=== PATIENT | male | born 1980 | race Caucasian/White ===

== ENCOUNTER 2018-12-31 15:08 | Emergency (ER) | payer MEDICAID ==
[~2018-12-31] VITALS: Ht 180.3 cm; Wt 109.8 kg
[2018-12-31 15:23] VITALS: BP 137/99
--- NOTE | 2018-12-31 15:26 | NUR ---
PT VSS, NOT IN DISTRESS, AMB TO LOBBY WITH
--- NOTE | 2018-12-31 15:45 | NUR ---
PATIENT AMBULATED TO ER BED 12.
--- NOTE | 2018-12-31 15:50 | NUR ---
BIB . C/O GENERALIZED WEAKNESS. ALCOHOL INTAKE X 15 DAYS, INTAKE OF 4-6 BEERS TODAY PER PT, NO FOOD INTAKE FOR 15 DAYS, ONLY ALCOHOL INTAKE. VOMITED X4 TODAY, NO NAUSEA, NO DIZZINESS, AFEBRILE. AAO X4. PATIENT POSITIONED FOR COMFORT; HOB ELEVATED; BEDRAILS UP X1; BED DOWN. ER MD MADE AWARE OF PT STATUS.
--- NOTE | 2018-12-31 16:45 | NUR ---
Patient being evaluated by physician at bedside.
[2018-12-31] MEDS ORDERED: NACL 0.9% 1,000 ML IV ONE (16:50)
[2018-12-31 17:06] LABS: BASOPHILS # (AUTO) 0.1 K/uL (0.00-0.22); BASOPHILS % (AUTO) 1.7 % (0.0-2.0); HEMATOCRIT 40.4 % (36-52); HEMOGLOBIN 14.2 g/dL (12.0-18.0); LYMPHOCYTES # (AUTO) 1.3 K/uL (2.0-11.5); LYMPHOCYTES % (AUTO) 25.4 % (20.5-51.1); MEAN CORPUSCULAR HEMOGLOBIN 31 pg (27-31); MEAN CORPUSCULAR HGB CONC 35 g/dL (33-37); MONOCYTES # (AUTO) 0.5 K/uL (0.8-1.0); MONOCYTES % (AUTO) 9.1 % (1.7-9.3); NEUTROPHILS # (AUTO) 3.2 K/uL (1.8-7.7); NEUTROPHILS % (AUTO) 63.8 % (42.2-75.2); PLATELET COUNT (AUTO) 90 K/uL (140-450); RED BLOOD CELL COUNT(AUTO) 4.54 MIL/uL (4.20-6.10); RED CELL DISTRIBUTION WIDTH 13.1 % (11.6-13.7)
[2018-12-31 17:16] LABS: ANION GAP 12.1 (8-16); CARBON DIOXIDE 24.3 mmol/L (21-32); CREATININE 0.9 mg/dL (0.7-1.3); POTASSIUM 3.4 mmol/L (3.5-5.1)
[2018-12-31 17:21] LABS: BARBITURATE, URINE NEG. ng/ml (NEG <=200); BENZODIAZEPINE, URINE NEG. ng/mL (NEG <=200); CANNABINOID, URINE NEG. ng/mL (NEG <=50); COCAINE, URINE NEG. ng/mL (NEG <=300); OPIATE, URINE NEG. ng/mL (NEG <=2000); PHENCYCLIDINE SCREEN,URINE NEG. ng/mL (NEG <=25)
--- NOTE | 2018-12-31 19:10 | NUR ---
Pt report given to JOSE MARTIN Vergara. Transfer of care at this time.
--- NOTE | 2018-12-31 19:40 | NUR ---
Patient discharged with v/s stable. Written and verbal after care instructions given and explained. Patient verbalized understanding. Ambulatory with steady gait. All questions addressed prior to discharge. Advised to follow up with PMD.
[2018-12-31 20:34] VITALS: BP 148/92
== END 2018-12-31 19:40 | disposition home or self-care (01) ==
LOC: MED 15:08
DX: F10.229 Alcohol dependence with intoxication, unspecified (principal); Y90.8 Blood alcohol level of 240 mg/100 ml or more
CPT/HCPCS: 36415; 80048; 80305; 83036; 85025; 99283; G0482; J7030

== ENCOUNTER 2019-08-03 19:58 | Emergency (ER) | payer SELFPAY ==
[~2019-08-03] VITALS: Ht 180.3 cm; Wt 109.8 kg
[2019-08-03 20:25] VITALS: BP 169/111
--- NOTE | 2019-08-03 20:33 | NUR ---
PT AMBULATES TO LOBBY WITH STEADY GAIT. AWAITING AVAILABLE BED. FATHER IN LAW ACCOMPANYING.
--- NOTE | 2019-08-03 20:43 | NUR ---
PT AMBULATED TO ER BED 02
[2019-08-03] MEDS ORDERED: PANTOPRAZOLE 40 MG INJ VIAL IVP ONE (21:00)
[2019-08-03] MEDS ORDERED: MULTIVITAMIN-12 10 ML, THIAMINE 100 MG, MAGNESIUM SULFATE 50% 2,000 MG, FOLIC ACID 1 MG... IV SCH ×5 (21:00)
[2019-08-03] MEDS ORDERED: ONDANSETRON 4 MG/2 ML VIAL IVP ONE (21:00)
--- NOTE | 2019-08-03 21:02 | NUR ---
39 Y/O MALE PRESENTS TO ED, C/O ETOH INTOXICATION. PT STATES DRINKING 30 BOTTLES OF BEER DAILY FOR THE PAST 6 DAYS. PT DENIES ANY TRIGGERS FOR DRINKING, STATES "I JUST LIKE TO DRINK." PT DENIES ANY DEPRESSION. 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 PT DENIES ANY PAIN. NO TREMORS NOTED. PT ABLE TO AMBULATE WITH SLOW STEADY GAIT. PT VSS. ERMD AWARE. WILL CONTINUE TO MONITOR.
[2019-08-03 21:37] LABS: BASOPHILS # (AUTO) 0.1 K/uL (0.00-0.22); BASOPHILS % (AUTO) 0.8 % (0.0-2.0); EOSINOPHILS % (AUTO) 0.1 % (0.0-4.0); HEMATOCRIT 43.5 % (36-52); HEMOGLOBIN 14.9 g/dL (12.0-18.0); LYMPHOCYTES # (AUTO) 3.5 K/uL (2.0-11.5); LYMPHOCYTES % (AUTO) 30.7 % (20.5-51.1); MEAN CORPUSCULAR HEMOGLOBIN 32 pg (27-31); MEAN CORPUSCULAR HGB CONC 34 g/dL (33-37); MEAN CORPUSCULAR VOLUME 93.1 fL (80-94); MONOCYTES # (AUTO) 0.6 K/uL (0.8-1.0); MONOCYTES % (AUTO) 5.2 % (1.7-9.3); NEUTROPHILS # (AUTO) 7.3 K/uL (1.8-7.7); NEUTROPHILS % (AUTO) 63.2 % (42.2-75.2); PLATELET COUNT (AUTO) 262 K/uL (140-450); RED BLOOD CELL COUNT(AUTO) 4.68 MIL/uL (4.20-6.10); RED CELL DISTRIBUTION WIDTH 12.7 % (11.6-13.7); WHITE BLOOD COUNT (AUTO) 11.5 K/uL (4.8-10.8)
[2019-08-03] MEDS ORDERED: FOLIC ACID 5 MG/ML SYR ONE (22:03)
[2019-08-03] MEDS ORDERED: MULTIVITAMIN-12 10 ML VIAL IV ONE (22:03)
[2019-08-03] MEDS ORDERED: THIAMINE 200 MG/2 ML VIAL ONE (22:03)
[2019-08-03] MEDS ORDERED: MAG SULF 2000 MG/WATER PREMIX 50 ML IV ONE (22:07)
[2019-08-03 22:11] LABS: ALBUMIN 3.9 g/dL (3.4-5.0); ANION GAP 18.1 (8-16); CARBON DIOXIDE 23.4 mmol/L (21-32); CREATININE 0.9 mg/dL (0.7-1.3); POTASSIUM 3.5 mmol/L (3.5-5.1); TOTAL BILIRUBIN 0.9 mg/dL (0.0-1.0)
[2019-08-03 23:07] VITALS: BP 151/69
--- NOTE | 2019-08-03 23:07 | NUR ---
PT DISCHARGED WITH PAPERWORK. RX XANAX. EDUCATED PT REGARDING MEDICATION AND S/E. EDUCATED PT REGARDING D/C DIAGNOSIS AND INSTRUCTIONS. PT VERBALIZED UNDERSTANDING OF TEACHING. TOLD PT TO FOLLOW UP WITH PCP AND WHEN TO RETURN TO ED. PT VSS. ALL QUESTIONS ANSWERED.
--- NOTE | 2019-08-06 12:58 | NUR ---
Late entry. COnfirmed with RN that 0.9 NS with MVI IV 1000ml completed at 2305
== END 2019-08-03 23:07 | disposition home or self-care (01) ==
LOC: MED 19:58
DX: F10.10 Alcohol abuse, uncomplicated (principal)
CPT/HCPCS: 36415; 80053; 83690; 85025; 96365; 96375; 99283; A9153; C9113; J2405; J3411; J3475; J3490